=== PATIENT | female | born 1995 | race Caucasian/White ===

== ENCOUNTER 2016-09-24 02:41 | Emergency (ER) | payer BC ==
--- NOTE | ~2016-09-24 | CR72 ---
[facility] A Service of [facility] & [facility] RADIOLOGY TEXT RESULTS PATIENT: ATA ÁLVAREZ LOCATION: [facility] : [birth year] UNIT #: [id number] AGE: [address]: Maggy Mar APRN SEX: F ORDER DR: [id number] [facility] [address] [place], [place] [address] [id number] E MR#: [id number] Acc #: [id number] NAME: ATA ÁLVAREZ : 1995 SEX: F STUDY DATE/TIME: 09/24/2016 4:25 UNIT: [facility] ROOM: STUDY DESCRIPTION: CR Chest Single View Portable Attending Physician: Maggy Mar A.P.R.N. Ordering Physician: Maggy Mar A.P.R.N. Primary Care Physician: No Primary Care Physician MEDICAL IMAGING REPORT This report is preliminary unless electronic signature is present EXAM Portable chest HISTORY Shortness of air chest pressure x2 weeks FINDINGS A single AP portable view of the chest shows both lungs to be clear. The heart is normal in size. The mediastinal contour is normal. No significant bone abnormalities are seen. IMPRESSION Normal portable chest. Dictated by... Liana Monroy M.D. THIS IS AN ELECTRONICALLY VERIFIED REPORT Liana Monroy M.D. at 09/27/2016 7:23 AM ADRIAN/luci TD: 09/24/2016 05:59 JOB #: [id number] MEDICAL IMAGING REPORT Page 1 of 1 COPY
--- NOTE | ~2016-09-24 | EKG ---
PATIENT: ATA ÁLVAREZ UNIT #: [id number] Ventricular Rate: 63 BPM Atrial Rate: 63 BPM P-R Interval: 150 ms QRS Duration: 86 ms Q-T Interval: 422 ms QTC Calculation(Bezet): 431 ms P [place]: 15 degrees Calculated R [place]: 31 degrees Calculated T [place]: 23 degrees Diagnosis Line: Normal sinus rhythm Diagnosis Line: Normal ECG Diagnosis Line: No previous ECGs available Diagnosis Line: Confirmed by KENROY ZAMBRANO MD ([id number]) on 09/24/2016 Diagnosis Line: 8:09:08 PM INTERPRETING MD: JUAN MANUEL DUNNE
[2016-09-24 04:55] LABS: BASOPHIL# 0.1 X10e3 (0-0.3); BASOPHIL% 0.8 % (0-2.5); DIFF IND NO; EOSINOPHIL# 0.3 X10e3 (0-0.7); HEMATOCRIT 41.4 % (35.0-45.0); HEMOGLOBIN 13.7 gm/dL (12.0-16.0); LYMPHOCYTE# 3.3 X10e3 (1.0-3.5); LYMPHOCYTE% 36.9 % (17.0-45.0); MEAN CELL VOLUME 84.5 FL (83-96); MEAN CORPUSCULAR HGB CONC 33.1 g/dL (30-36); MEAN PLATELET VOLUME 9.6 FL (6.5-11.5); MONOCYTE# 0.8 X10e3 (0-1.0); MONOCYTE% 8.4 % (3.0-12.0); NEUTROPHIL# 4.6 X10e3 (1.5-7.1); NEUTROPHIL% 50.9 % (40-75); PLATELET COUNT 208 X10e3 (140-420); RED CELL DISTRIBUTION WIDTH 15.1 % (11.0-15.5)
[2016-09-24 04:59] LABS: POC - CKMB <1.0 ng/mL (0.0-7.9); POC - TROPONIN <0.05 ng/mL (<=0.05)
[2016-09-24 05:17] LABS: URINE SOURCE CLEAN CATCH
[2016-09-24 05:33] LABS: CALCIUM SERUM 8.7 mg/dL (8.4-10.2); CARBON DIOXIDE 18 mmol/L (22-31); CHLORIDE 103 mmol/L (100-111); CREATININE SERUM 0.5 mg/dL (0.6-1.4); GLOM FILT RATE Estimated 138.4 mL/min (>60); GLUCOSE FASTING 93 mg/dL (70-110); POTASSIUM 3.1 mmol/L (3.5-5.1); SODIUM 131 mmol/L (135-145)
[2016-09-24 05:34] LABS: BLOOD UREA NITROGEN <5 mg/dL (9-23)
[2016-09-24 05:40] LABS: URINE APPEARANCE CLEAR; URINE BILIRUBIN NEG (NEG); URINE BLOOD NEG (NEG); URINE COLOR YELLOW; URINE GLUCOSE NEG (NEG); URINE KETONE NEG (NEG); URINE LEUKOCYTE ESTERASE NEG (NEG); URINE NITRATE NEG (NEG); URINE PH 6.5 (5-8); URINE PROTEIN NEG (NEG); URINE SPECIFIC GRAVITY 1.002 (1.003-1.035); URINE UROBILINOGEN 0.2 MG/DL (NEG)
[2016-09-24 05:42] LABS: AMPHETAMINE NEG (NEG); BARBITURATES NEG (NEG); BENZODIAZEPINES NEG (NEG); COCAINE NEG (NEG); MARIJUANA NEG (NEG); OPIATES NEG (NEG); TRICYCLIC ANTIDEPRESSANTS NEG (NEG); U METHADONE NEG (NEG)
[2016-09-24 05:48] LABS: CULTURE INDICATED? NO
== END 2016-09-24 06:02 | disposition home or self-care (01) ==
LOC: CED 02:41
PROVIDERS: Nurse Practitioner
DX: F41.9 Anxiety disorder, unspecified (principal); F17.210 Nicotine dependence, cigarettes, uncomplicated
CPT/HCPCS: 36415; 71010; 80048; 80307; 81003; 82553; 84484; 84703; 85025; 93005; 99284